=== PATIENT | female | born 1975 | race Caucasian/White ===

== ENCOUNTER 2020-09-12 08:34 | Outpatient (CLI) | payer OTHER, SELFPAY ==
--- NOTE | 2020-09-12 08:42 | MM_ITS ---
WS: [id number] BILATERAL DIGITAL DIAGNOSTIC MAMMOGRAM MAMMOGRAPHY WITH CAD CLINICAL INFORMATION: RT BREAST MASS COMPARISON: TECHNIQUE: Bilateral CC, MLO, and ML views. FINDINGS: The breasts are composed of heterogeneous fibroglandular density, which can limit the detection of sm all underlying mass lesions. Palpable marker right breast. No evidence of underlying mammographic abn ormality. Ultrasound is pending. Left breast is unremarkable and unchanged. ULTRASOUND BREAST RIGHT TECHNIQUE: Ultrasound right breast focused area of concern. CLINICAL INFORMATION: RT BREAST MASS COMPARISON: None. FINDINGS: Ultrasound right breast at the 6:00 position. Dense underlying parenchymal tissue. No evidence of cys tic or solid mass. No suspicious lesions. No lesions to target for biopsy. MM/[place] [id number] IMPRESSION: BI-RADS: 2-Benign FOLLOW UP: 1 Year Follow-up Recommend return to annual screening mammography.
== END 2020-09-12 08:35 | disposition home or self-care (01) ==
LOC: RADSHAW 08:37
PROVIDERS: PCP Family Medicine; Visit Provider Family Medicine
DX: N63.10 Unspecified lump in the right breast, unspecified quadrant (principal)
CPT/HCPCS: 76642; 77066

== ENCOUNTER → 2021-04-16 13:30 | Outpatient (BNVA) | payer OTHER, SELFPAY | PROVIDERS: PCP Family Medicine; Visit Provider Obstetrics & Gynecology | DX: N76.4 Abscess of vulva (principal); L73.2 Hidradenitis suppurativa | CPT/HCPCS: 87070; 87075; 87077; 87184; 87205 ==

== ENCOUNTER → 2021-08-17 15:49 | Outpatient (BNVA) | payer OTHER, SELFPAY | PROVIDERS: PCP Family Medicine; Visit Provider Podiatrist Foot & Ankle Surgery | DX: M79.673 Pain in unspecified foot (principal); M72.2 Plantar fascial fibromatosis; G57.60 Lesion of plantar nerve, unspecified lower limb | CPT/HCPCS: 73630 ==

== ENCOUNTER 2022-04-01 09:08 | Outpatient (CLI) | payer OTHER, SELFPAY ==
--- NOTE | 2022-04-01 09:14 | XRR_ITS ---
PROCEDURE INFORMATION: Exam: XR Right Hip Exam date and time: 04/01/2022 9:16 AM Age: 46 years old Clinical indication: Injury or trauma; Fall; Blunt trauma (contusions or hematomas); Right; Hip; Injury date: 8 days ago; Additional info: Fall one week ago, fall 8 days ago with continued right hip pain and a bruise on her right TECHNIQUE: Imaging protocol: XR Right hip. Views: 1 view hip with pelvis when performed. COMPARISON: No relevant prior studies available. FINDINGS: Bones/joints: Unremarkable. No acute fracture. Soft tissues: Unremarkable. XR/XR hip RT 2-3V wo/w pel* [id number] IMPRESSION: No acute findings.
== END 2022-04-01 09:09 | disposition home or self-care (01) ==
PROVIDERS: PCP Family Medicine; Visit Provider Family Medicine Adult Medicine
DX: M25.559 Pain in unspecified hip (principal)
CPT/HCPCS: 73502

== ENCOUNTER 2024-06-14 08:41 | Outpatient (CLI) | payer OTHER, SELFPAY ==
--- NOTE | 2024-06-14 08:48 | MM_ITS ---
WS: [id number] BILATERAL SCREENING DIGITAL TOMOSYNTHESIS MAMMOGRAM WITH CAD HISTORY: Screening COMPARISON: 09/12/2020, 05/05/2016 and 04/05/2013 Bilateral CC and MLO views with tomosynthesis and synthetic mammography submitted. Computer aided det ection analyzed. Breast composition: There are scattered areas of fibroglandular density. No suspicious masses, microc alcifications or architectural distortion. MM/[place] [id number] IMPRESSION: BI-RADS: 1-Negative FOLLOW UP: 1 Year Follow-up
== END 2024-06-14 08:42 | disposition home or self-care (01) ==
LOC: RAD 08:42
PROVIDERS: PCP Family Medicine; Visit Provider Family Medicine
DX: Z12.31 Encounter for screening mammogram for malignant neoplasm of breast (principal); R92.323 Mammographic fibroglandular density, bilateral breasts
CPT/HCPCS: 77063; 77067

== ENCOUNTER 2024-07-26 11:18 | Day surgery (SDC) | payer OTHER, SELFPAY ==
[2024-07-26 11:24] VITALS: BMI 26.6
[2024-07-26 11:30] VITALS: BP 116/75; PULSE 95; RESP 18; TEMP 36.1; O2SAT 97
[2024-07-26] MEDS: sodium chloride 0.9% 1,000 ML 30 ML IV (11:45)
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
--- NOTE | 2024-07-26 12:20 | W.PM.OPSUD ---
Surgery/Procedure H&P Update DATE OF PROCEDURE: July 26, 2024 DATE H&P PERFORMED: 07/18/24 H&P UPDATE INFORMATION: I have reviewed H&P completed within last 30 days, I have examined patient prior to procedure, No changes to prior documentation and H&P is in [facility] EMR on date indicated PREOP DIAGNOSIS: screening PLANNED PROCEDURE: Operation Date: 07/26/24 12:20 Proposed Procedures p EGD - [id number],G0121,Z12.11,K21.9(Not Applicable) - Huang Tapia MD s Colonoscopy(Not Applicable) - Huang Tapia MD
[2024-07-26 12:44] VITALS: BP 112/76; PULSE 66; RESP 20; TEMP 36.4; O2SAT 98
[2024-07-26 12:59] VITALS: BP 127/78; PULSE 68; RESP 18; O2SAT 96
--- NOTE | 2024-07-26 14:42 | ANE.PACU2 ---
Inpatient post-anesthesia follow up: Airway intact: Yes Vital signs: Temperature 97.5 F Pulse Rate 68 Respiratory Rate 18 Blood Pressure 127/78 Pulse Oximetry 96 Oxygen Delivery Me thod Room Air Oxygen Flow Rate Fraction of Inspir ed Oxygen Hydration adequate: Yes Nausea and vomiting: No Pain level: 1 Mental status: Baseline
== END 2024-07-26 13:24 | disposition home or self-care (01) ==
PROVIDERS: PCP Family Medicine; Visit Provider Surgery
PROC: 0DJ08ZZ Inspection of Upper Intestinal Tract, Via Natural or Artificial Opening Endoscopic (ICD-10-PCS; CPT 43235; principal; 2024-07-26 12:20)
PROC: 0DJD8ZZ Inspection of Lower Intestinal Tract, Via Natural or Artificial Opening Endoscopic (ICD-10-PCS; CPT 45378; 2024-07-26 12:20)
DX: Z12.11 Encounter for screening for malignant neoplasm of colon (principal); K29.50 Unspecified chronic gastritis without bleeding; K64.4 Residual hemorrhoidal skin tags; K21.9 Gastro-esophageal reflux disease without esophagitis; M79.7 Fibromyalgia; F41.9 Anxiety disorder, unspecified; Z87.891 Personal history of nicotine dependence; Z87.11 Personal history of peptic ulcer disease
CPT/HCPCS: 43239; 45378; 88305; 88342; J2371; J2704; J7030

== ENCOUNTER 2025-05-28 11:40 | Outpatient (CLI) | payer OTHER, SELFPAY ==
--- NOTE | 2025-05-28 | ECG_ITS ---
[facility] Pat Name: Jaimee Garcia Department: Room: Gender: Female [employer]: : 1975 Requested By: Hayley Frank Order Number: [id number] Tori MD: Noah Gonzalez M.D. Interpretive Statements Lung unchanged pre/post procedure; Intraprocedure shortess of breath; Symptoms resoled by discharge PROCEDURE: At the baseline, the patient's blood pressure was 97/70 with a heart rate of 67. The baseline electrocardiogram showed normal sinus rhythm with normal ST-Ts. Poor R wave progression. The patient exercised for 9 minutes and 49 seconds on a standard Virgilio protocol. Patient attained a maximum heart rate of 148 beats per minute(88% of the maximum predicted heart rate) with a blood pressure at the peak exercise of 164/85 mm Hg. The EKG at the peak exercise revealed no significant changes. Patient was complaining of some chest pressure of 3/10 in intensity during the first phase of recovery During the recovery phase, there were no new changes. Blood pressure at the end of the recovery phase was 121/76 mm Hg with a heart rate of 78 per minute. CONCLUSION: 1. Normal EKG response to treadmill exercise 2. No exercise-induced chest pain or cardiac arrhythmia 3. Fair exercise tolerance, attained a maximum of 13.5 METs 4. Mild chest pressure during the recovery phase, subsided spontaneously Electronically Signed On 06-04-2025 10:28:33 CDT by Noah Gonzalez M.D. [email or web address]
[2025-05-28 12:13] VITALS: BMI 26.6
[2025-05-28 12:42] VITALS: BP 121/76; PULSE 73
== END 2025-05-28 11:41 | disposition home or self-care (01) ==
LOC: CDL 11:42
PROVIDERS: PCP Family Medicine; Visit Provider Internal Medicine Cardiovascular Disease
DX: R07.9 Chest pain, unspecified (principal); R06.02 Shortness of breath; I49.8 Other specified cardiac arrhythmias; R94.31 Abnormal electrocardiogram [ECG] [EKG]; R07.89 Other chest pain
CPT/HCPCS: 93017

== ENCOUNTER 2025-06-27 13:50 | Outpatient (CLI) | payer OTHER, SELFPAY | END 2025-06-27 13:51 | disposition home or self-care (01) | LOC: SLEEP 13:52 | PROVIDERS: PCP Family Medicine; Referring Provider Internal Medicine Cardiovascular Disease; Visit Provider Internal Medicine Pulmonary Disease | DX: G47.33 Obstructive sleep apnea (adult) (pediatric) (principal) | CPT/HCPCS: G0399 ==